=== PATIENT | male | born 1945 | race Two or more races ===

== ENCOUNTER → 2022-10-03 | Outpatient (CLI) | payer MEDICARE | LOC: RAD 09:51 | PROVIDERS: ATTEND Internal Medicine | DX: S06.0X0A Concussion without loss of consciousness, initial encounter (principal); S29.9XXA Unspecified injury of thorax, initial encounter | CPT/HCPCS: 71046 ==

== ENCOUNTER → 2022-10-09 | Outpatient (CLI) | payer MEDICARE, OTHER | LOC: CT 08:51 | PROVIDERS: ATTEND Internal Medicine | DX: S06.0X0A Concussion without loss of consciousness, initial encounter (principal); S29.9XXA Unspecified injury of thorax, initial encounter | CPT/HCPCS: 70450 ==